=== PATIENT | male | born 1930 | race Asian ===

== ENCOUNTER 2021-07-06 18:04 | Inpatient (IN) | payer BC, MEDICARE ==
[~2021-07-06] VITALS: Ht 172.7 cm; Wt 56.2 kg
[2021-07-06 20:14] LABS: BASOPHILS % 0.6 % (0.0-2.0); EOSINOPHILS % 0.4 % (0.0-5.0); HEMATOCRIT. 37.6 % (42.0-52.0); HEMOGLOBIN. 12.6 g/dL (14.0-18.0); LYMPHOCYTES % 9.7 % (20.0-50.0); MEAN CORPUSCULAR HEMOGLOBIN 31.8 pg (28.0-32.0); MEAN CORPUSCULAR VOLUME 94.8 fL (80.0-94.0); MEAN PLATELET VOLUME 6.5 fl (7.4-10.4); MONOCYTES % 11.9 % (2.0-8.0); NEUTROPHILS % 77.4 % (40.0-76.0); PLATELET 233 x1000/uL (130-400); RED BLOOD CELL COUNT 3.96 mill/uL (4.7-6.1); RED CELL DISTRIBUTION WIDTH 13.3 % (11.6-14.6)
[2021-07-06 20:19] LABS: CHLORIDE 104 mEq/L (98-107)
[2021-07-06] MEDS ORDERED: ASPIRIN 81MG TABLET PO NR (21:00)
[2021-07-06] MEDS ORDERED: ONDANSETRON HCL 4MG/2ML INJ IV PRN (21:15)
[2021-07-06] MEDS ORDERED: ACETAMINOPHEN 325MG TABLET PO PRN (21:15)
[2021-07-06] MEDS ORDERED: SODIUM CHLORIDE 0.9% 1,000 ML IV ONE (21:15)
[2021-07-06 23:00] VITALS: BP 131/72
[2021-07-06] MEDS ORDERED: POTASSIUM CHLORIDE INJ 40 MEQ in DEXT 5% WATER 250 ML IV NR (23:00)
[2021-07-06 23:11] VITALS: BP 131/72
[2021-07-07] VITALS: BP 149/73
[2021-07-07 04:00] VITALS: BP 131/75
[2021-07-07 06:45] LABS: BASOPHILS % 0.2 % (0.0-2.0); EOSINOPHILS % 0.7 % (0.0-5.0); HEMATOCRIT. 35.1 % (42.0-52.0); LYMPHOCYTES % 12.9 % (20.0-50.0); MEAN CORPUSCULAR HEMOGLOBIN 32.4 pg (28.0-32.0); MEAN CORPUSCULAR VOLUME 94.6 fL (80.0-94.0); MEAN PLATELET VOLUME 6.9 fl (7.4-10.4); MONOCYTES % 12.5 % (2.0-8.0); NEUTROPHILS % 73.7 % (40.0-76.0); PLATELET 213 x1000/uL (130-400); RED BLOOD CELL COUNT 3.71 mill/uL (4.7-6.1); RED CELL DISTRIBUTION WIDTH 13.1 % (11.6-14.6)
[2021-07-07 06:56] LABS: CHLORIDE 109 mEq/L (98-107)
[2021-07-07] MEDS ORDERED: POTASSIUM CHLORIDE 20MEQ/PACKET PO NR (07:15)
[2021-07-07 08:00] VITALS: BP 137/67
[2021-07-07] MEDS: ASPIRIN 81MG EC TABLET PO SCH (08:27)
[2021-07-07] MEDS ORDERED: POTASSIUM CHLORIDE INJ 40 MEQ in DEXT 5% WATER 250 ML IV NR (09:00)
[2021-07-07] MEDS ORDERED: PNEUMOCOCCAL 23-VAL P-SAC VAC 0.5 ML IM ONE (10:00)
[2021-07-07] MEDS ORDERED: INFLUENZA VACCINE 05/PF 0.5 ML SYRINGE IM ONE (10:00)
[2021-07-07 12:00] VITALS: BP 130/60
[2021-07-07 16:30] VITALS: BP_SYST 142
[2021-07-07] MEDS ORDERED: CILO100T MT (17:17)
[2021-07-07 20:00] VITALS: BP 134/81
[2021-07-08] VITALS: BP 145/88
[2021-07-08 04:00] VITALS: BP 144/85
[2021-07-08 07:12] LABS: BASOPHILS % 0.3 % (0.0-2.0); EOSINOPHILS % 0.4 % (0.0-5.0); HEMATOCRIT. 38.3 % (42.0-52.0); LYMPHOCYTES % 10.8 % (20.0-50.0); MEAN CORPUSCULAR HEMOGLOBIN 32.1 pg (28.0-32.0); MEAN CORPUSCULAR VOLUME 94.4 fL (80.0-94.0); MEAN PLATELET VOLUME 6.8 fl (7.4-10.4); MONOCYTES % 7.2 % (2.0-8.0); NEUTROPHILS % 81.3 % (40.0-76.0); PLATELET 215 x1000/uL (130-400); RED BLOOD CELL COUNT 4.05 mill/uL (4.7-6.1); RED CELL DISTRIBUTION WIDTH 12.8 % (11.6-14.6)
[2021-07-08 07:32] LABS: CHLORIDE 108 mEq/L (98-107)
[2021-07-08 08:00] VITALS: BP 147/79
[2021-07-08] MEDS: ASPIRIN 81MG EC TABLET PO SCH (09:33)
[2021-07-08 12:00] VITALS: BP 129/72
[2021-07-08 16:00] VITALS: BP 128/74
[2021-07-08 20:00] VITALS: BP 112/60
[2021-07-08] MEDS: CILOSTAZOL 50 MG TABLET PO SCH (21:12)
[2021-07-09] VITALS: BP 123/71
[2021-07-09 04:00] VITALS: BP 122/63
[2021-07-09 08:00] VITALS: BP 107/62
[2021-07-09] MEDS: ASPIRIN 81MG EC TABLET PO SCH (08:44)
[2021-07-09] MEDS: CILOSTAZOL 50 MG TABLET PO SCH ×2 (08:44→21:09)
[2021-07-09] MEDS ORDERED: NALOXONE HCL 0.4MG/ML VIAL IV PRN (11:15)
[2021-07-09] MEDS: TRAMADOL 50MG TABLET PO PRN (11:35)
[2021-07-09 12:00] VITALS: BP 111/67
[2021-07-09 16:00] VITALS: BP 116/70
[2021-07-09 16:42] LABS: TOTAL IRON BINDING CAPACITY 180 ug/dL (250-450)
[2021-07-09 17:09] LABS: VITAMIN B12 SERUM 698 pg/mL (211-911)
[2021-07-09 20:00] VITALS: BP 113/65
[2021-07-09] MEDS ORDERED: CARVEDILOL 3.125 MG TABLET PO SCH (21:00)
[2021-07-09] MEDS: ATORVASTATIN CALCIUM 20MG TABLET PO SCH (21:09)
[2021-07-10] VITALS: BP 130/68
[2021-07-10 04:00] VITALS: BP 128/68
[2021-07-10] MEDS: TRAMADOL 50MG TABLET PO PRN (04:19)
[2021-07-10 07:01] LABS: BASOPHILS % 0.4 % (0.0-2.0); EOSINOPHILS % 3.5 % (0.0-5.0); HEMATOCRIT. 35.9 % (42.0-52.0); HEMOGLOBIN. 12.4 g/dL (14.0-18.0); LYMPHOCYTES % 14.8 % (20.0-50.0); MEAN PLATELET VOLUME 6.9 fl (7.4-10.4); NEUTROPHILS % 70.3 % (40.0-76.0); PLATELET 233 x1000/uL (130-400); RED BLOOD CELL COUNT 3.78 mill/uL (4.7-6.1); RED CELL DISTRIBUTION WIDTH 12.9 % (11.6-14.6)
[2021-07-10 07:05] LABS: CHLORIDE 105 mEq/L (98-107)
[2021-07-10 08:00] VITALS: BP 116/74
[2021-07-10] MEDS: ASPIRIN 81MG EC TABLET PO SCH (09:33)
[2021-07-10] MEDS: LISINOPRIL 2.5MG TABLET PO SCH (09:33)
[2021-07-10] MEDS: CILOSTAZOL 50 MG TABLET PO SCH ×2 (09:34→20:55)
[2021-07-10] MEDS: CARVEDILOL 3.125 MG TABLET PO SCH (09:35)
[2021-07-10 12:00] VITALS: BP 107/68
[2021-07-10] MEDS: FERROUS SULFATE 325MG TABLET PO SCH ×2 (13:30→17:03)
[2021-07-10 16:00] VITALS: BP 109/66
[2021-07-10 20:00] VITALS: BP 113/69
[2021-07-10] MEDS: ATORVASTATIN CALCIUM 20MG TABLET PO SCH (20:55)
[2021-07-11] VITALS: BP 105/59
[2021-07-11 04:00] VITALS: BP 107/69
[2021-07-11] MEDS: FERROUS SULFATE 325MG TABLET PO SCH ×2 (06:31→13:09)
[2021-07-11 07:52] LABS: BASOPHILS % 0.6 % (0.0-2.0); EOSINOPHILS % 3.7 % (0.0-5.0); HEMOGLOBIN. 12.3 g/dL (14.0-18.0); LYMPHOCYTES % 16.2 % (20.0-50.0); MEAN CORPUSCULAR HEMOGLOBIN 32.4 pg (28.0-32.0); MEAN PLATELET VOLUME 6.6 fl (7.4-10.4); MONOCYTES % 11.2 % (2.0-8.0); NEUTROPHILS % 68.3 % (40.0-76.0); PLATELET 260 x1000/uL (130-400); RED BLOOD CELL COUNT 3.79 mill/uL (4.7-6.1); RED CELL DISTRIBUTION WIDTH 12.9 % (11.6-14.6)
[2021-07-11 08:00] VITALS: BP 131/75
[2021-07-11 08:02] LABS: CHLORIDE 107 mEq/L (98-107)
[2021-07-11] MEDS: CILOSTAZOL 50 MG TABLET PO SCH (08:53)
[2021-07-11] MEDS: ASPIRIN 81MG EC TABLET PO SCH (08:53)
[2021-07-11] MEDS: CARVEDILOL 3.125 MG TABLET PO SCH (08:53)
[2021-07-11] MEDS: LISINOPRIL 2.5MG TABLET PO SCH (08:54)
[2021-07-11] MEDS ORDERED: ATOR20TA PO (09:12)
[2021-07-11] MEDS ORDERED: ASPI-1406 PO (09:12)
[2021-07-11] MEDS ORDERED: LISI2.5T47 PO (09:12)
[2021-07-11] MEDS ORDERED: FERR-63 PO (09:12)
[2021-07-11] MEDS ORDERED: COR3 PO (09:12)
[2021-07-11] MEDS ORDERED: CILO50TA PO (09:12)
[2021-07-11 12:00] VITALS: BP 111/61
[2021-07-11 13:17] VITALS: BP 111/61
== END 2021-07-11 16:45 | DRG 640 ==
LOC: ER 18:04 → ENRESERV 21:30 → 7EST 23:08
PROVIDERS: ADMIT Internal Medicine; ATTEND Internal Medicine
DX: E87.6 Hypokalemia (principal); I21.4 Non-ST elevation (NSTEMI) myocardial infarction; I42.9 Cardiomyopathy, unspecified; Z68.1 Body mass index [BMI] 19.9 or less, adult; E44.0 Moderate protein-calorie malnutrition; R53.1 Weakness; I25.10 Atherosclerotic heart disease of native coronary artery without angina pectoris; R62.7 Adult failure to thrive; E78.5 Hyperlipidemia, unspecified; E88.09 Other disorders of plasma-protein metabolism, not elsewhere classified; R74.01 Elevation of levels of liver transaminase levels; D64.9 Anemia, unspecified; I35.1 Nonrheumatic aortic (valve) insufficiency; I45.10 Unspecified right bundle-branch block; I11.0 Hypertensive heart disease with heart failure; I50.9 Heart failure, unspecified; I73.9 Peripheral vascular disease, unspecified; R29.6 Repeated falls; Z79.02 Long term (current) use of antithrombotics/antiplatelets; Z86.73 Personal history of transient ischemic attack (TIA), and cerebral infarction without residual deficits; Z95.1 Presence of aortocoronary bypass graft; Z79.899 Other long term (current) drug therapy
CPT/HCPCS: 36415; 71045; 73502; 73560; 80048; 80053; 80076; 82607; 83540; 83550; 83735; 84443; 84484; 85025; 90686; 90732; 93005; 93306; 97110; 97162; 97166; 97530; 97535; 99285; C1893; J3480; J7040; J7060